=== PATIENT | female | born 1995 | race Two or more races ===

== ENCOUNTER 2019-04-11 02:22 | Emergency (ER) | payer BC ==
[2019-04-11 02:32] VITALS: BP 137/90
--- NOTE | 2019-04-11 02:50 | EDM.PDOC ---
ED HPI GENERAL MEDICAL PROBLEM - General Chief Complaint: Abdominal Pain Stated Complaint: RIGHT LOWER ABDOMINAL PAIN TO BACK Time Seen by Provider: 04/11/19 02:32 Source of Information: Reports: Patient, Family (), RN Notes Reviewed History Limitations: Reports: No Limitations - History of Present Illness INITIAL COMMENTS - FREE TEXT/NARRATIVE: The patient states that she started her menstrual period this past Sunday, 2018, and that she is likely on her last day. She states that she developed watery diarrhea around 20:00 last night, , 04/10/2019, then right lower quadrant and right lower back pain around midnight. She describes the pain as a dull pressure, similar to menstrual cramps, only more severe. She developed nausea and emesis around 01:30, then dysuria and urinary urgency around 02:00. No recent fever. The patient states that she took a single tablet of naproxen prior to coming to the ED. The patient's PCP is Celia Kaplan NP. Her Director Hair is Dr. Shital Tovar. 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 ED EXAM, RENAL/ - Physical Exam Exam: See Below Exam Limited By: No Limitations General Appearance: Alert, WD/WN, No Apparent Distress Eye Exam: Bilateral Eye: EOMI, Normal Inspection Ears: Normal External Exam, Hearing Grossly Normal Nose: Normal Inspection Throat/Mouth: Normal Inspection, Normal Lips, Normal Voice, No Airway Compromise Head: Atraumatic, Normocephalic Neck: Normal Inspection, Full Range of Motion Respiratory/Chest: No Respiratory Distress, Lungs Clear, Normal Breath Sounds, No Accessory Muscle Use Cardiovascular: Normal Peripheral Pulses, Regular Rate, Rhythm, No Edema, No Gallop, No JVD, No Murmur, No Rub GI/Abdominal: Normal Bowel Sounds, Soft, Non-Tender (including the RLQ), No Organomegaly, No Distention, No Abnormal Bruit, No Mass, Other (Obese) (Female) Exam: Deferred Rectal (Female) Exam: Deferred Back Exam: Normal Inspection, Full Range of Motion. No: CVA Tenderness (L), CVA Tenderness (R) Extremities: Normal Inspection, Normal Range of Motion, No Pedal Edema, Normal Capillary Refill Neurological: Alert, Oriented, Normal Cognition, No Motor/Sensory Deficits Psychiatric: Normal Affect Skin Exam: Warm, Dry, Intact, Normal Color, No Rash Course - Vital Signs Last Recorded V/S: Last Vital Signs Temp 36.4 C 04/11/19 02:29 Pulse 74 04/11/19 02:29 Resp 18 04/11/19 02:29 BP 137/90 04/11/19 02:29 Pulse Ox 94 L 04/11/19 02:29 - Orders/Labs/Meds Orders: Active Orders 24 hr Category Date Time Status Strain Urine [RC] ASDIRECTED Care 04/11/19 03:40 Active Sodium Chloride 0.9% [Normal Saline] 1,000 ml Med 04/11/19 03:45 Active IV ASDIRECTED Medication Orders Sodium Chloride (Normal Saline) 1,000 mls @ 150 mls/hr IV ASDIRECTED YAMILA Last Admin: 04/11/19 03:51 Dose: 150 mls/hr Labs: Laboratory Tests 04/11/19 04/11/19 Range/Units 02:55 02:55 Urine Color Nasra H (Yellow) Urine Appearance Turbid H (Clear) Urine pH 7.0 (5.0-8.0) Ur Specific [place] 1.025 (1.005-1.030) Urine Protein 2+ H (Negative) Urine Glucose (UA) Negative (Negative) Urine Ketones Trace H (Negative) Urine Occult Blood 3+ H (Negative) Urine Nitrite Negative (Negative) Urine Bilirubin 1+ H (Negative) Urine Urobilinogen 1.0 (0.2-1.0) Ur Leukocyte Esterase Negative (Negative) Urine RBC >100 H (0-5) /hpf Urine WBC 0-5 (0-5) /hpf Ur Epithelial Cells 0-5 (0-5) /hpf Urine Bacteria Few (FEW) /hpf Urine Mucus Few (FEW) /hpf Urine HCG, Qual Negative (NEGATIVE) Meds: Medications Generic Name Dose Route Start Last Admin Trade Name Freq PRN Reason Stop Dose Admin Sodium Chloride 1,000 mls @ 150 mls/hr 04/11/19 03:45 04/11/19 03:51 Normal Saline IV 150 mls/hr ASDIRECTED YAMILA Administration Discontinued Medications Generic Name Dose Route Start Last Admin Trade Name Freq PRN Reason Stop Dose Admin Hydromorphone HCl 1 mg 04/11/19 03:39 04/11/19 03:57 Dilaudid IVPUSH 04/11/19 03:40 1 mg ONETIME ONE Administration Ketorolac Tromethamine 30 mg 04/11/19 03:39 04/11/19 03:54 Toradol IVPUSH 04/11/19 03:40 30 mg ONETIME STA Administration Ondansetron HCl 4 mg 04/11/19 03:39 04/11/19 03:52 Zofran IVPUSH 04/11/19 03:40 4 mg ONETIME ONE Administration Tamsulosin HCl 0.4 mg 04/11/19 03:39 04/11/19 03:51 Flomax PO 04/11/19 03:40 0.4 mg ONETIME ONE Administration - Re-Assessments/Exams Free Text/Narrative Re-Assessment/Exam: 04/11/19 02:43 The cause of the patient's symptoms is unclear. While she complains right lower quadrant abdominal pain, her abdominal exam is completely benign, with no tenderness, even to the right lower quadrant. She has no right flank pain, either. She reports some dysuria and urinary urgency for the past hour, therefore I want to check a urinalysis to rule out a UTI, evaluate for blood, and rule out an ectopic . Because the patient is on her menstrual period, we will need to obtain the urine sample by quick catheter. At this time , I do not see an indication for an imaging study or blood work. 04/11/19 03:41 The patient's urinalysis, despite being collected by a quick catheter, shows a great deal of blood, concerning for a ureterolith. The patient states that she is still in considerable pain. I have therefore ordered a CT scan of the abdomen and pelvis without contrast, to evaluate for a ureterolith. In the meantime, the patient will receive IV fluid, IV Dilaudid, IV Toradol, IV Zofran , and oral Flomax. All of her urine will be strained. 04/11/19 06:20 CT of the abdomen and pelvis without contrast is read by Dr. Rendon as: 1. Slightly prominent distal right ureter caused by a 3 mm obstructing stone within the distal right ureter at the UVJ. 2. No additional abnormality is appreciated on noncontrast CT study of the abdomen and pelvis. 04/11/19 06:35 Test results discussed with the patient and her . As above, the patient has 3 mm stone at the UVJ. Based on its size and location, she will likely pass this stone on her own. She will be discharged home with prescription for Norris, Flomax, and Zofran, and I would like her to take [id number] ibuprofen, in addition. She should stay adequately hydrated, and strain all of her urine. Departure - Departure Time of Disposition: 06:35 Disposition: Home, Self-Care 01 Condition: Good Clinical Impression: Ureterolithiasis - Discharge Information *PRESCRIPTION DRUG MONITORING PROGRAM REVIEWED*: Not Applicable *COPY OF PRESCRIPTION DRUG MONITORING REPORT IN PATIENT POLO: Not Applicable Prescriptions: Acetaminophen/HYDROcodone [Norris 325-5 MG] 1 - 2 tab PO Q6H PRN #20 tablet PRN Reason: Pain (Severe 7-10) Ondansetron [Zofran ODT] 1 tab PO Q8H PRN #10 tab.dis PRN Reason: Nausea/Vomiting Tamsulosin HCl [Flomax] 1 canister PO DAILY PRN #4 cap.er.24h PRN Reason: Pain Referrals: Celia Kaplan NP [Primary Care Provider] - Forms: ED Department Discharge Additional Instructions: You were seen in the emergency room for right lower abdominal and right lower back pain, watery diarrhea, nausea, and vomiting. Workup in the ER included a urinalysis, a urine test, and a CT scan of your abdomen and pelvis without contrast. Your workup found that you have a 3 mm stone in your right ureter, located just above your bladder. Based on the size and location of the stone, you will almost certainly pass it on your own. Take [id number] ibuprofen, 2-3 tablets (400-600mg) every 8 hours, with food, as needed for discomfort. In addition to ibuprofen, you may also take 1-2 tablets of the prescription opioid Norris up to every 6 hours, as needed for pain not relieved by ibuprofen. If you take Norris, do not drive or operate heavy machinery for 10 hours afterwards. Norris may cause constipation, so consider taking a stool softener. Take one tablet of the anti-spasm medicine Flomax every morning, starting tomorrow morning, 04/12/2019, as needed for pain. Dissolve one tablet of the anti-nausea medicine Zofran on your tongue up to every 8 hours, as needed for nausea/vomiting. Stay adequately hydrated. Strain all of your urine. If you capture the stone, take it to your doctor for analysis. If any other problems, please do not hesitate to return to the ER. - My Orders Last 24 Hours: My Active Orders 04/11/19 03:40 Strain Urine [RC] ASDIRECTED 04/11/19 03:45 Sodium Chloride 0.9% [Normal Saline] 1,000 ml IV ASDIRECTED - Assessment/Plan Last 24 Hours: My Active Orders 04/11/19 03:40 Strain Urine [RC] ASDIRECTED 04/11/19 03:45 Sodium Chloride 0.9% [Normal Saline] 1,000 ml IV ASDIRECTED
[2019-04-11] MEDS ORDERED: Tamsulosin 0.4 MG Cap.ER PO ONE (03:39)
[2019-04-11] MEDS ORDERED: HYDROmorphone 1 MG/ML Syringe IVPUSH ONE (03:39)
[2019-04-11] MEDS ORDERED: Ondansetron 4 MG/2 ML SDV IVPUSH ONE (03:39)
[2019-04-11] MEDS ORDERED: Ketorolac 30 MG/ML SDV IVPUSH STA (03:39)
[2019-04-11] MEDS ORDERED: Sodium Chloride 0.9% 1,000 ML IV SCH (03:45)
--- NOTE | 2019-04-11 06:15 | CT ---
CT abdomen and pelvis Technique: Multiple axial sections were obtained from above the dome of the diaphragm inferiorly through the pubic symphysis. Intravenous and oral contrast not utilized. Study has been performed as a ureteral stone protocol. Comparison: No previous study. Findings: Distal right ureter is slightly prominent in size. This finding is caused by an obstructing stone located within the distal right ureter at the UVJ measuring approximately 3 mm. No other ureteral calculi or renal calculi are seen. Small portion of the visualized lung bases are clear. Noncontrast appearance of the liver shows no discrete abnormality. Spleen appears within normal limits. Adrenal glands show no nodule. Pancreas is within normal limits. Aorta shows no aneurysm. No retroperitoneal adenopathy or mesenteric abnormalities are seen. Appendix is seen which is normal in size. No pelvic mass or adenopathy is seen. No free fluid or inflammatory change is seen. Impression: 1. Slightly prominent distal right ureter caused by a 3 mm obstructing stone within the distal right ureter at the UVJ. 2. No additional abnormality is appreciated on noncontrast CT study of the abdomen and pelvis. Diagnostic code #3
[2019-04-11] MEDS ORDERED: Acetaminophen/HYDROcodone 325-5 MG Tab PO ONE (06:52)
== END 2019-04-11 06:59 | disposition home or self-care (01) ==
LOC: JD.ED 02:22
DX: N20.1 Calculus of ureter (principal); F17.210 Nicotine dependence, cigarettes, uncomplicated; Z88.1 Allergy status to other antibiotic agents
CPT/HCPCS: 74176; 81001; 81025; 96361; 96374; 96375; 99284; A9270; J1170; J1885; J2405; J7040